=== PATIENT | female | born 1975 | race Caucasian/White ===

== ENCOUNTER → 2022-11-01 | Outpatient (CLI) | payer MEDICAID, SELFPAY ==
--- NOTE | 2022-11-01 14:20 | RAD_ITS ---
STUDY: X-RAY RIGHT FOOT, FIRST TOE REASON FOR EXAM: Female, 46 years old. First toe pain. TECHNIQUE: 4 view(s) of the toe were obtained. COMPARISON: None. FINDINGS: Oblique minimally displaced fracture of the lateral aspect of distal phalanx of the first toe with intra-articular extension. Soft tissue swelling at the fracture site. Mild osteoarthritic changes. RAD/Toe(s) Min 2 Views IMPRESSION: First distal phalangeal fracture as described. Electronically Signed: Maikol Weston, at 12:00 EST ,
== END | disposition home or self-care (01) ==
LOC: MTRAD 14:10
PROVIDERS: PCP Family Medicine; Referring Provider Nurse Practitioner Family; Visit Provider Nurse Practitioner Family
DX: M79.676 Pain in unspecified toe(s) (principal)
CPT/HCPCS: 73660

== ENCOUNTER → 2022-11-26 | Outpatient (CLI) | payer MEDICAID, SELFPAY ==
--- NOTE | 2022-11-26 15:11 | RAD_ITS ---
INDICATION: Pain -- Attention left thumb EXAMINATION/TECHNIQUE: X-RAY - LEFT XR Hand Min 3 Views 3 VIEWS COMPARISON: None. FINDINGS: SOFT TISSUES: No soft tissue swelling or gas. No radiopaque foreign body. BONES/JOINTS: No acute fracture or subluxation.. Normal alignment. Preservation of the joint space.. No sclerotic or destructive changes observed. Minimal first carpal metacarpal joint and metacarpophalangeal joint osteophyte formation. Chronic fragmentation of the ulnar styloid. RAD/Hand Min 3 Views IMPRESSION: Minimal degenerative change of the first carpometacarpal joint and first metacarpophalangeal joint compatible with age. No evidence of erosive spondyloarthropathy. Chronic fragmentation of the ulnar styloid. Electronically Signed: Neel Richardson MD at 7:50 EDT ,
[2022-11-26 18:16] LABS: Absolute Lymphocyte Count 2.87 X10^3/uL (0.83-4.51); Basophil# 0.06 X10^3/uL; Basophil% 0.6 % (0-1); Eosinophil# 0.25 X10^3/uL; Eosinophils% 2.5 % (0-5); Hemoglobin 13.6 g/dL (12.0-15.0); Lymphocyte # 2.87 X10^3/ul (0.83-4.51); Lymphocyte % 28.8 % (19-41); Mean Corp Hgb Conc 32.4 g/dL (32-36); Mean Corpuscular Hgb 28.7 pg (27.0-32.0); Mean Corpuscular Volume 88.6 fL (81-99); Monocyte# 0.76 X10^3/uL; Monocyte% 7.6 % (0-10); NRBC Flagged by Analyzer 0 % (0-5); Neutrophil # 6.02 X10^3/uL (2.7-7.7); Neutrophil % 60.3 % (47-70); POSITIVE COUNT YES; RBC Distribution Width SD 45.1 fl (35.1-43.9); Red Blood Count 4.74 M/mm3 (4.2-5.4)
[2022-11-26 18:26] LABS: Erythrocyte Sedimentation Rate 12 mm/hr (0-30)
[2022-11-26 18:46] LABS: Differential Indicated SCAN CRITERIA MET
[2022-11-26 18:47] LABS: Differential Comment SCANNED; Platelet Estimate ADEQUATE (ADEQ)
[2022-11-26 19:04] LABS: CRP < 2.90 mg/L (0.0-3.0); Rheumatoid Factor < 10.0 IU/mL (<15)
[2022-11-29 09:45] LABS: ANTINUCLEAR ANTIBODIES DIRECT Negative (Negative)
[2022-12-03 16:35] LABS: CCP IgG Antibodies 4 units (0-19); HLA B27 Negative (.); Lyme Scn Total Ab w/Rflx Negative (Negative)
== END | disposition home or self-care (01) ==
PROVIDERS: PCP Family Medicine
DX: M79.642 Pain in left hand (principal); M25.9 Joint disorder, unspecified
CPT/HCPCS: 36415; 73130; 81374; 85025; 85652; 86038; 86140; 86200; 86431; 86618

== ENCOUNTER → 2022-11-28 | Outpatient (CLI) | payer MEDICAID, SELFPAY ==
--- NOTE | 2022-11-28 08:37 | BI_ITS ---
MAMMOGRAPHY - BILATERAL SCREENING REASON FOR EXAM: Female, 46 years old. Routine annual screening examination. PERTINENT HISTORY: Mother with breast cancer. Aunt with breast cancer. TECHNIQUE: Digital bilateral breast tori (3D mammographic acquisition) in the CC and MLO projections. 2-D mediolateral oblique (MLO) and craniocaudad (CC) views of both breasts were obtained. CAD: Full Field Digital Mammography with Computer Added Detection was performed. COMPARISON: No comparison mammograms available at this time. If any prior films become available, an addendum to this report can be generated. FINDINGS: Breast Composition: The breasts are extremely dense, which lowers the sensitivity of mammography. There are no dominant masses or suspicious calcifications. No other significant abnormalities are identified. BI/SCRN MAMM (CAD)W/TORI BILAT IMPRESSION: Negative screening mammogram. Yearly followup mammogram recommended. (A) ASSESSMENT CATEGORY: BIRADS Category 1: Negative. A letter regarding these results will be sent to the patient by the facility within 30 days. Approximately 10% of breast cancers are not detected by mammography. A normal mammogram should not delay biopsy of a clinically suspicious abnormality. [id number] Electronically Signed: Kel Lund MD at 9:10 EDT ,
== END | disposition home or self-care (01) ==
LOC: OPBI 08:35
PROVIDERS: PCP Family Medicine; Referring Provider Family Medicine; Visit Provider Family Medicine
DX: Z12.31 Encounter for screening mammogram for malignant neoplasm of breast (principal); Z80.3 Family history of malignant neoplasm of breast
CPT/HCPCS: 77063; 77067

== ENCOUNTER → 2024-05-04 | Outpatient (CLI) | payer MEDICAID, SELFPAY ==
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
== END | disposition home or self-care (01) ==
LOC: MTRAD 09:59
PROVIDERS: PCP Family Medicine; Referring Provider Family Medicine; Visit Provider Family Medicine
DX: M25.569 Pain in unspecified knee (principal)
CPT/HCPCS: 73564

== ENCOUNTER → 2024-05-27 | Outpatient (CLI) | payer MEDICAID, SELFPAY ==
--- NOTE | 2024-05-27 15:03 | BI_ITS ---
MAMMOGRAPHY - BILATERAL SCREENING REASON FOR EXAM: Female, 48 years old. Routine annual screening examination. PERTINENT HISTORY: Mother with breast cancer. Aunt with breast cancer. TECHNIQUE: Digital bilateral breast tori (3D mammographic acquisition) in the CC and MLO projections. 2-D mediolateral oblique (MLO) and craniocaudad (CC) views of both breasts were obtained. CAD: Full Field Digital Mammography with Computer Added Detection was performed. COMPARISON: Comparison is made with prior study of November 28, 2022. FINDINGS: Breast Composition: The breasts are extremely dense, which lowers the sensitivity of mammography. A cluster microcalcification is seen in the deep central medial aspect of the left breast. Biopsy recommended. No other significant abnormalities are identified. BI/SCRN MAMM (CAD)W/TORI BILAT IMPRESSION: New faint cluster of microcalcification seen in the deep central medial aspect of the left breast. Biopsy recommended. ASSESSMENT CATEGORY: BIRADS Category 4: Suspicious - Biopsy Should Be Considered. A letter regarding these results will be sent to the patient by the facility within 30 days. Approximately 10% of breast cancers are not detected by mammography. A normal mammogram should not delay biopsy of a clinically suspicious abnormality. [id number] Electronically Signed: Kel Lund MD at 7:50 EDT ,
== END | disposition home or self-care (01) ==
LOC: OPBI 15:02
PROVIDERS: PCP Family Medicine; Referring Provider Family Medicine; Visit Provider Family Medicine
DX: Z12.31 Encounter for screening mammogram for malignant neoplasm of breast (principal); Z80.3 Family history of malignant neoplasm of breast
CPT/HCPCS: 77063; 77067

== ENCOUNTER → 2024-06-11 | Outpatient (CLI) | payer MEDICAID, SELFPAY ==
--- NOTE | 2024-06-11 | IMM_PTH ---
PATIENT: DEANA DAVILA LOC: [facility] U#:[id number] AGE/SX: 48/F ROOM: RE06/11/[address]: Dr. Nettie Dyer MD : 1975 BED: DIS: 06/11/2024 SPEC #: [id number] RECD: 06/14/24 10:33 STATUS: LOULOU REQ #: [id number] IMELDA: 06/11/24 00:[address]: Nettie Dyer DEPT: IMMUNOHISTOCHEMISTRY RECD BY: Scott Yang ENTERED: 06/14/24 10:33 SP TYPE: IMMUNO OTHR DR: Agusto Young MD Tissues: Left breast, NOS Procedures: CALPONIN-1 (add) CK8 (add) E-CAD (add) HER2 ZE (add) MA (add) P40 (add) ER (initial) PHYSICIAN & INSTITUTION [place] [id number] SPECIMEN INFORMATION: Tissue Source: Left breast core tissue Clinical Info: Left breast calcifications deep central Specimen Number: [id number] CPT code: [id number] METHODOLOGY: Deparaffinized sections of prefer/formalin-fixed tissue or PAP/DQ stained slides are incubated with monoclonal/polyclonal antibodies/oligonucleotide probes. Localization is made via biotin free immunoperoxidase method. Appropriate controls are performed and reacted as expected. Results on target cell population are indicated in the following table: RESULTS: ANTIBODY / CLONE RESULT Block 1 E-Cad (ECH-6) positive CK8 (30pdbeY11) positive Calponin-1 (IS253Z) positive (myoepithelial cells) P40 (BC28) positive (myoepithelial cells) MORPHOMETRIC ANALYSIS ER (clone 6F11) positive (variable 0 to 100%, moderate to strong intensity) MA (clone 16/1E2) positive (variable 0 to 70%, weak to moderate intensity) Her-2Neu (clone CB11) positive (3+) The prognostic test for HER2 is performed on formalin-fixed paraffin embedded tissue. A 3+ (positive) staining pattern is defined as intense, homogeneous, complete, circumferential membranous staining in >10% of contiguous tumor cells. A similar weak (2+) staining pattern is interpreted as equivocal. CHUCHO follow-up testing is recommended for all equivocal cases. Positivity/negativity for ER/MA is reported if > or < 1% of the tumor cells are immuno- reactive, respectively. The ASCO/CAP criteria is used for scoring. Reference: Journal of Clinical Oncology, 2013; 31:1148-7956 & 2010; 16:1136-0520. Ischemic time: Less than one hour. Duration of fixation: 10 Hrs; Sample Adequate: Yes. These assays have not been validated on decalcified tissues. Results should be interpreted with caution given the likelihood of false negativity on decalcified specimens or fixation greater than 72 hours. Alternative testing methods (FISH/dualISH for Her2; gene expression for ER) are recommended, if applicable. Please notify the laboratory if additional testing is required. These tests were developed and their performance characteristics determined by [facility]. They may not have been cleared or approved by the U.S. Food and Drug Administration. The FDA has determined that such clearance or approval is not necessary. The above immunohistochemical/dualISH markers are ordered and reviewed by the Pathologist. INTERPRETATION: Left breast, stereotactic biopsy: Ductal carcinoma in situ. 06/15/2024
--- NOTE | 2024-06-11 10:00 | BRBX_PTH ---
PATIENT: DEANA DAVILA LOC: [facility] U#:[id number] AGE/SX: 48/F ROOM: RE06/11/[address]: Dr. Nettie Dyer MD : 1975 BED: DIS: 06/11/2024 SPEC #: [id number] RECD: 06/11/24 11:30 STATUS: LOULOU RENETTA #: [id number] IMELDA: 06/11/24 10:[address]: Nettie Dyer DEPT: SURGICAL PATHOLOGY RECD BY: Aretha Vo ENTERED: 06/11/24 11:46 SP TYPE: BREAST BX OTHR DR: Agusto Young MD Tissues: Left breast, NOS Procedures: Surgery Specimen Level IV HEADER OPERATION: Left breast stereotactic biopsy PRE-OP DIAGNOSIS: Left breast calcifications deep central TISSUE SUBMITTED: Left breast core tissue, deep central Ischemic Time: 1 minute Fixation Time: 10 hours MICROSCOPIC DIAGNOSIS Left breast calcification deep central, stereotactic core biopsy: Ductal carcinoma in situ with following characteristics: Architectural Pattern: Comedo Nuclear Grade: 2 (intermediate) Necrosis: Present, central (expansive comedo necrosis) Microcalcifications: Present Additional Findings: Focal dense fibrosis Breast Marker Study: [id number] ER: positive (variable, 0 - 100%, moderate to strong intensity) RI: positive (variable, 0 - 70%, weak to moderate intensity) Her2: positive (3+). See comment. 06/14/2024 COMMENT Immunohistochemistry ([id number]) supports the above diagnosis. Case has been reviewed in consultation with Dr. Lewis who concurs with the above diagnosis. IDC:AM MICROSCOPIC DESCRIPTION Slides are reviewed. GROSS DESCRIPTION Received is one container labeled with the patient's name and not further designated. The specimen consists of multiple irregular and elongated fragments of rm-yellow soft tissue that in aggregate measure 5.0 x 3.0 x 0.2 cm. The specimen in its entity in two cassettes. AM 06/11/2024 TC:[address] [facility]:[id number] ADDENDUM ADDENDUM ADDENDUM ADDENDUM ADDENDUM ADDENDUM ADDENDUM ADDENDUM ADDENDUM ADDENDUM ADDENDUM ADDENDUM ADDENDUM ADDENDUM ADDENDUM ADDENDUM 07/12/2024 08:18 ADDENDUM 07/12/2024 08:18 ADDENDUM 07/12/2024 08:18 ADDENDUM 07/12/2024 08:18 ADDENDUM 07/12/2024 08:18 This addendum is added to incorporate an outside pathology consultation report. The case was examined at [facility] (#[id number]) and the following diagnosis was rendered. Final diagnosis: Left breast calcifications, deep central, stereotactic core biopsy: * Ductal carcinoma in situ, clinging and cribriform types, intermediate nuclear grade with comedo-necrosis and calcifications. * Outside immunohistochemistry stains reviewed. Estrogen receptor- positive (20%), progesterone receptor- positive (20%). Tumor cells are positive for e-cadherin (membranous) consistent with ductal type. Calponin and p40 demonstrate the presence of myoepithelial cells lining the DCIS ducts. Please see complete above mentioned consultation report in EMR
--- NOTE | 2024-06-11 10:51 | OP.PCM_ITS ---
Report of Operation Date of Procedure: 06/11/24 Pre-Operative Diagnosis: Left breast microcalcifications Post-Operative Diagnosis: Same Surgery/Procedure Performed:: Left breast stereotactic biopsy Surgeon: Nettie Dyer Type of Anesthesia: Local Specimen's removed: Left breast microcalcifications deep medial/central Description of Procedure: Procedure: Left stereotactic core biopsy Indications: 48 year-old female with cluster of microcalcifications in the deep medial/central of the left breast. Risk benefits were discussed the patient and she elected to proceed with stereotactic core biopsy with clip placement Description of procedure: Patient was brought into the mammography suite and laid prone on the stereotactic table. A timeout was completed verifying correct patient, procedure, site, specially, prior to beginning procedure. The left breast was prepped and draped in usual sterile fashion and using local anesthesia was obtained with 1% lidocaine with epi. Patient's left breast was positioned and placed into compression. Initial film showed calcifications are in the center of the compression paddle. 15? views were then taken. The calcif ications were localized. The left breast was prepped draped in usual sterile fashion. An 8-gauge mammotome was set up according to the digital coordinates. The tract of the mammotome was anesthetized with local anesthesia and an incision was made with the 11 blade scalpel at the entry site. The mammotome was advanced to the prefire state. Pre-prior films were checked and verified. The mammotome was fired. Post fire films were also checked and verified. Biopsies were taken from 9:00 to 2:00. The specimen was x-rayed and the majority of the calcifications were within the specimen. Mammotome clip was placed at the 12 o'clock position. The mammotome was removed from the breast. An additional films were taken which showed the majority of the calcifications were removed and a clip was in place. Pressure was held for hemostasis. Once hemostasis was assured the wound was dressed with Steri-Strips and OpSite. Patient did undergo mammography for clip placement as well. The patient tolerated the procedure well and was discharged from the mammography suite good condition. complications: none Complications none
== END | disposition home or self-care (01) ==
LOC: BIRAD 09:03
PROVIDERS: PCP Family Medicine; Referring Provider Surgery; Visit Provider Surgery
DX: R92.1 Mammographic calcification found on diagnostic imaging of breast (principal)
CPT/HCPCS: 19082; 19081; 88305; 88341; 88342; J7050; A4648